=== PATIENT | female | born 1945 ===

== ENCOUNTER 2018-09-23 08:43 | Day surgery (SDC) | payer MEDICAID ==
[2018-09-18 09:49] VITALS: BMI 36.1
[2018-09-23] MEDS ORDERED: Lactated Ringer's 1,000 ML IV ONE (09:15)
--- NOTE | 2018-09-23 13:23 | CP.SDSHP ---
Same Day Surgery H & P - History Proposed Procedure: Right Modified Radical Mastectomy Pre-Op Diagnosis: Invasive Ductal Carcinoma of the Right Breast - Previous Medical/Surgical History Cardiac: Hypertension Endocrine/Metabolic: Thyroid Disease (Hypothyroidism) Comments: PMH: Diabetes, HLD, Hypothyroidism, HTN. SocialHx: hx of tobacco use, quit last year Previous Surgical History: 1. Cholecystectomy 2. Cesarian Section 3. R. Knee Surgery - Allergies Allergies: Allergies No Known Allergies Allergy (Verified 09/23/18 09:22) - Physical Exam General Appearance: well developed, no acute distress Vital Signs: Vital Signs 09/23/18 09/23/18 09:11 09:37 Temperature 97.9 F 97.9 F Pulse Rate 78 78 Respiratory 18 18 Rate Blood Pressure 139/79 139/79 O2 Sat by Pulse 98 98 Oximetry Mental Status: Alert & Oriented x3 Neuro: WNL Heart: WNL Lungs: WNL GI: WNL Social History: Smoking (former tobacco use) - {Optional Preform as Required} Breast: Other Abdomen: WNL - Impression Impression: 73F w/ Invasive Ductal Ca of the Right breast. Plan for Right Breast modified radical mastectomy Pt. Evaluated Today:Candidate for Anesthesia & Procedure: Yes - Date & Time Date: 09/23/18 Time: 13:24 Short Stay Discharge - Short Stay Discharge Admitting Diagnosis/Reason for Visit: C50.511 Disposition: HOME/ ROUTINE Referrals: Cherise Barrera MD [Primary Care Provider] - Alicia Al MD [Family Provider] - Instructions: Mastectomy (DC), Breast Surgery Exercises Additional Instructions (Diet, Activity): keep dressing on for 2 days. After can remove and cleared for shower. Can keep arm elevated. Follow up in clinic in 1-2 weeks If fever > 100.4 take over the counter tylenol. if fever persists go to the ER Do no soak in bath or go swimming in ocean. hacer phill con cirujano 1-2 semanas mantener bendaje por 2 massey, mantener brazo elevado Progress Note/Discharge Note with Instructions: Dictation #: [id number] Patient seen and examined at bedside this AM. Closed suction drain that is in the breast bed put out 140cc of serosang fluid. OnQ Catheter in place, suspected some of the drainage in the closed suction bulb is local anesthetic. Patient dressing C/D/i, no strikethrough. patient moving RUE, sensation intact. able to shrug shoulders
[2018-09-23] MEDS ORDERED: Bupivacaine 0.25% 300 ML in Sodium Chloride 0.9% 300 ML IS ONE (15:07)
[2018-09-23] MEDS ORDERED: Bupivacaine 0.5% 50 ML IJ ONE (16:55)
[2018-09-23] MEDS ORDERED: Oxycodone/Acetaminophen 5/325 mg Tab PO PRN (17:10)
[2018-09-23] MEDS ORDERED: HYDROmorphone 1 mg/ml ISec IVP PRN (17:13)
[2018-09-23] MEDS ORDERED: Dexamethasone 4 mg/1 ml IVP PRN (17:23)
[2018-09-23] MEDS ORDERED: HYDROmorphone 0.5 mg/0.5 ml ISec IVP PRN (17:23)
[2018-09-23] MEDS ORDERED: Patient's Own Med (Fluticasone/Salmeterol [Fluticasone-Salmeterol 113-14] 1 EACH) IH PRN (17:25)
--- NOTE | 2018-09-23 17:25 | PCM.SURG1 ---
Surgeon's Initial Post Op Note - Surgeon's Notes Surgeon: Dr. Barrera R D Internship: Dr. Rod, Dr. Angeles Type of Anesthesia: General Endo Pre-Operative Diagnosis: right breast cancer Operative Findings: good hemostatis Post-Operative Diagnosis: same Operation Performed: right modified radical mastectomy, placement on OnQ pain pump Specimen/Specimens Removed: right breast, stitch lateral. right axilla lymph node tissue Estimated Blood Loss: EBL {In ML}: 100 Blood Products Given: N/A Drains Used: Maik Post-Op Condition: Good Date of Surgery/Procedure: 09/23/18 Time of Surgery/Procedure: 17:25
[2018-09-23] MEDS: Lactated Ringer's 1,000 ML IV SCH (20:17)
[2018-09-24] MEDS: ceFAZolin 2 GM in Sodium Chloride 0.9% 100 ML IVPB SCH ×2 (00:43→11:24)
[2018-09-24] MEDS: Insulin Lispro (humaLOG) 100 Units/ml Inj SC SCH ×3 (00:49→17:57)
[2018-09-24] MEDS: Lactated Ringer's 1,000 ML IV SCH (05:56)
[2018-09-24] MEDS: Levothyroxine 75 MCG TAB PO SCH (06:07)
[2018-09-24 07:13] LABS: BASO % 0.3 % (0.0-2.0); EOS # 0.1 K/uL (0.0-0.7); HEMOGLOBIN 11.3 g/dL (12.0-16.0); LYMPH # 1.8 K/uL (1.0-4.3); LYMPH % 16.6 % (20.0-40.0); MEAN CELL VOLUME 84.4 fl (81.0-99.0); MEAN CORPUSCULAR HEMOGLOBIN 28.2 pg (27.0-31.0); MEAN CORPUSCULAR HGB CONC 33.4 g/dL (33.0-37.0); MONO # 0.8 K/uL (0.0-0.8); MONO % 7.1 % (0.0-10.0); NEUT # 8.1 K/uL (1.8-7.0); RBC 4.02 Mil/uL (3.80-5.20); RED CELL DISTRIBUTION WIDTH 14.4 % (11.5-14.5); WHITE BLOOD COUNT 10.8 K/uL (4.8-10.8)
[2018-09-24 07:30] LABS: BLOOD UREA NITROGEN 14 mg/dl (7-17); CALCIUM 8.5 mg/dL (8.4-10.2); GFR NON-AFRICAN AMERICAN > 60
[2018-09-24] MEDS: Cholecalciferol 1,000 INTLU TAB PO SCH (08:54)
[2018-09-24] MEDS ORDERED: METFORMIN HCL 500 MG PO SCH (09:00)
[2018-09-24] MEDS: Enoxaparin 40 mg Syringe SC SCH (09:01)
--- NOTE | 2018-09-24 10:27 | CP.PCM.PN ---
Subjective - Date & Time of Evaluation Date of Evaluation: 09/24/18 Time of Evaluation: 06:40 - Subjective Subjective: Surgery progress note for Dr. Barrera Pt seen and examined at bedside this AM. Tolerating diet, reports mild pain her right arm, no fevers, chills, or drainage from the surgical site. Objective - Vital Signs/Intake and Output Vital Signs (last 24 hours): Temp Pulse Resp BP Pulse Ox 101.3 F H 91 H 20 98/61 L 93 L 09/24/18 08:13 09/24/18 08:13 09/24/18 08:13 09/24/18 08:13 09/24/18 08:13 Intake and Output: 09/24/18 09/24/18 06:59 18:59 Intake Total 400 Output Total 890 Balance -490 - Medications Medications: Current Medications Acetaminophen (Tylenol 325mg Tab) 650 mg PO Q4 PRN PRN Reason: Fever >100.4 F Last Admin: 09/24/18 08:57 Dose: 650 mg Acetaminophen (Tylenol 325mg Tab) 975 mg PO Q8 PRN PRN Reason: Other Atorvastatin Calcium (Lipitor) 20 mg PO DAILY [facility] Last Admin: 09/24/18 08:44 Dose: 20 mg Calcium Carbonate (Oscal) 500 mg PO BID [facility] Last Admin: 09/24/18 08:55 Dose: 500 mg Cholecalciferol (Vitamin D) 1,000 intlu PO DAILY [facility] Last Admin: 09/24/18 08:54 Dose: 1,000 intlu Enoxaparin Sodium (Lovenox) 40 mg SC DAILY [facility]; Protocol Last Admin: 09/24/18 09:01 Dose: 40 mg Fenofibrate (Tricor) 145 mg PO DAILY [facility] Last Admin: 09/24/18 08:54 Dose: 145 mg Home Med (Fluticasone/Salmeterol [Fluticasone-Salmeterol 113-14]) 1 each IH PRN PRN PRN Reason: Shortness of Breath Hydromorphone HCl (Dilaudid) 1 mg IVP Q4 PRN PRN Reason: Pain, moderate (4-7) Insulin Human Lispro (Humalog) 0 units SC Q8H [facility]; Protocol Last Admin: 09/24/18 00:49 Dose: Not Given Levothyroxine Sodium (Synthroid) 75 mcg PO DAILY@0630 [facility] Last Admin: 09/24/18 06:07 Dose: 75 mcg Metformin HCl (Glucophage) 250 mg PO BID [facility] Last Admin: 09/24/18 08:44 Dose: 250 mg Oxycodone/Acetaminophen (Percocet 5/325 Mg Tab) 1 tab PO Q6 PRN PRN Reason: Pain, moderate (4-7) Stop: 09/26/18 17:11 - Labs Labs: 09/24/18 06:30 09/24/18 06:30 - Constitutional Appears: Well, Non-toxic, No Acute Distress - Head Exam Head Exam: ATRAUMATIC, NORMOCEPHALIC - Eye Exam Eye Exam: Normal appearance. absent: Conjunctival injection, Scleral icterus - ENT Exam ENT Exam: Mucous Membranes Moist, Normal Oropharynx - Respiratory Exam Respiratory Exam: NORMAL BREATHING PATTERN. absent: Accessory Muscle Use, Respiratory Distress - Cardiovascular Exam Cardiovascular Exam: RRR Additional comments: right breast incisional dressing clean, dry, intact, pily drain with serosanguinous fluid output - GI/Abdominal Exam GI & Abdominal Exam: Soft. absent: Distended, Tenderness - Extremities Exam Extremities Exam: absent: Calf Tenderness, Pedal Edema, Tenderness - Neurological Exam Neurological Exam: Alert, Awake, Oriented x3 - Psychiatric Exam Psychiatric exam: Normal Affect, Normal Mood - Skin Skin Exam: Dry, Normal Color, Warm Assessment and Plan - Assessment and Plan (Free Text) Assessment: 73F
--- NOTE | 2018-09-24 11:53 | CP.PCM.DIS ---
Provider - Provider Date of Admission: 09/23/2018 Attending physician: Cherise Barrera MD Primary care physician: Cherise Barrera MD Time Spent in preparation of Discharge (in minutes): 35 Diagnosis - Discharge Diagnosis (1) Status post partial mastectomy of right breast Status: Acute Priority: High (2) Invasive ductal carcinoma of right breast Status: Acute Priority: High (3) HTN (hypertension) Status: Chronic Priority: Medium (4) HLD (hyperlipidemia) Status: Chronic Priority: Medium (5) Diabetes mellitus Status: Chronic Priority: Medium (6) Hypothyroid Status: Chronic Priority: Medium Hospital Course - Lab Results Lab Results: Most Recent Lab Values WBC 10.8 K/uL (4.8-10.8) 09/24/18 06:30 RBC 4.02 Mil/uL (3.80-5.20) 09/24/18 06:30 Hgb 11.3 g/dL (12.0-16.0) L D 09/24/18 06:30 Hct 33.9 % (34.0-47.0) L 09/24/18 06:30 MCV 84.4 fl (81.0-99.0) 09/24/18 06:30 MCH 28.2 pg (27.0-31.0) 09/24/18 06:30 MCHC 33.4 g/dL (33.0-37.0) 09/24/18 06:30 RDW 14.4 % (11.5-14.5) 09/24/18 06:30 Plt Count 163 K/uL (130-400) 09/24/18 06:30 MPV 9.0 fl (7.2-11.7) 09/24/18 06:30 Neut % (Auto) 75.0 % (50.0-75.0) 09/24/18 06:30 Lymph % (Auto) 16.6 % (20.0-40.0) L 09/24/18 06:30 [place] % (Auto) 7.1 % (0.0-10.0) 09/24/18 06:30 Eos % (Auto) 1.0 % (0.0-4.0) 09/24/18 06:30 Baso % (Auto) 0.3 % (0.0-2.0) 09/24/18 06:30 Neut # (Auto) 8.1 K/uL (1.8-7.0) H 09/24/18 06:30 Lymph # (Auto) 1.8 K/uL (1.0-4.3) 09/24/18 06:30 [place] # (Auto) 0.8 K/uL (0.0-0.8) 09/24/18 06:30 Eos # (Auto) 0.1 K/uL (0.0-0.7) 09/24/18 06:30 Baso # (Auto) 0.0 K/uL (0.0-0.2) 09/24/18 06:30 Sodium 135 mmol/l (132-148) 09/24/18 06:30 Potassium 3.6 MMOL/L (3.6-5.0) 09/24/18 06:30 Chloride 99 mmol/L (98-107) 09/24/18 06:30 Carbon Dioxide 27 mmol/L (22-30) 09/24/18 06:30 Anion Gap 13 (10-20) 09/24/18 06:30 BUN 14 mg/dl (7-17) 09/24/18 06:30 Creatinine 0.9 mg/dl (0.7-1.2) 09/24/18 06:30 Est GFR ( Amer) > 60 09/24/18 06:30 Est GFR (Non-Af Amer) > 60 09/24/18 06:30 POC Glucose (mg/dL) 144 mg/dL (65-110) H 09/24/18 10:51 Random Glucose 116 mg/dL (65-105) H 09/24/18 06:30 Calcium 8.5 mg/dL (8.4-10.2) 09/24/18 06:30 Blood Type B NEGATIVE 09/23/18 10:31 Blood Type Confirm B NEGATIVE 09/23/18 11:58 Antibody Screen Negative 09/23/18 10:31 BBK History Checked No verified bt 09/23/18 10:31 - Hospital Course Hospital Course: Pt is a 73F who had a diagnosis of invasive ductal carcinoma of the right breast via ultrasound biopsy who presented through same day surgery for modified radical mastectomy of the right breast. Patient tolerated the procedure well, and was kept overnight for wound monitoring and pain management. Patient recovered well and on POD#1 was tolerating pain on PO pain medication only, eating regular diet, and ambulating. Discharge Exam - Head Exam Head Exam: ATRAUMATIC, NORMOCEPHALIC Discharge Plan - Follow Up Plan Condition: GOOD Disposition: HOME/ ROUTINE Instructions: Mastectomy (DC), Breast Surgery Exercises Additional Instructions: keep dressing on for 2 days. After can remove and cleared for shower. Can keep arm elevated. Follow up in clinic in 1-2 weeks If fever > 100.4 take over the counter tylenol. if fever persists go to the ER Do no soak in bath or go swimming in ocean. hacer phill con cirujano 1-2 semanas mantener bendpaolo por 2 massey, mantener brazo elevado Referrals: Cherise Barrera MD [Primary Care Provider] - Alicia Al MD [Family Provider] -
--- NOTE | 2018-09-24 15:54 | OP ---
PROCEDURE DATE: 09/23/2018 SURGEON: Cherise Barrera MD. ASSISTANTS: 1. Neal Rod DO, PGY-4 2. Eduardo Angeles, PGY-2 ANESTHESIA: General. PREOPERATIVE DIAGNOSIS: Invasive ductal carcinoma of the right breast. POSTOPERATIVE DIAGNOSIS: Invasive ductal carcinoma of the right breast. PROCEDURES: 1. Modified radical mastectomy. 2. Axillary lymph node dissection at level 1 and 2. ESTIMATED BLOOD LOSS: 50 mL. SPECIMEN: 1. Breast. 2. Axillary lymph nodes. INDICATIONS FOR SURGERY: This is a 73-year-old female that on workup with cytology and biopsy was confirmed to have invasive ductal carcinoma of the right breast. She was demonstrated after detailed description and workup and detailed conversation with the patient. The patient agreed for a modified radical mastectomy. Discussions of alternatives were also discussed; however, the patient and family members decided the approach for a modified radical mastectomy was appropriate. DESCRIPTION OF PROCEDURE: The patient was brought into the operating suite and placed in supine position. The site of the surgery was confirmed of the right breast. The otto was noted in the preoperative. General anesthesia was then induced. Endotracheal tube was placed and confirmation with end tidal CO2. A time out was taken, completing, verifying correct patient, procedure site, and positioning. The breast, chest wall, and the axilla, upper arm and neck were prepped and draped in the usual sterile fashion using chlorhexidine. Skin incision was made above and below the nipple areolar complex and the oblique dissection across the breast was made. The flaps were raised in the avascular plane between the subcutaneous tissue and the breast tissue from the clavicle superiorly and the sternum medially, the anterior rectus sheath inferiorly and the anterior border of the latissimus dorsi muscle laterally. Hemostasis was achieved in the flaps using a combination of electrocautery and clamped and tied using 3-0 Vicryl. Next the breast tissue and the underlying pectoralis fascia was then excised from the pectoralis major muscle progressing from medial to lateral. The lateral border of the pectoralis major muscle, the breast tissue was retracted laterally and the dissection progressed under to the muscle. The clavipectoral fascia was then incised along the edge of the pectoralis major muscle and the pectoralis minor and major were freed from the surrounding tissues. The dissection progressed under the pectoralis major and then under the pectoralis minor fascia. The pectoralis muscle was continued to retract medially with the Bunn retractor. The medial pectoralis neurovascular bundle was identified and preserved. The levels of the 1 and the 2 aimee tissue in the pectoralis minor muscle was then dissected and removed using a combination of hemoclips ties and electrocautery. The first branch of the axillary vein was appropriately visualized and was noted to ensure that we stayed away from the axillary vein. The long thoracic nerve was then identified along the lateral edge of the latissimus dorsi along the chest wall, which was ensured to be preserved. The remaining aimee tissue between was then appropriately removed and once again using a combination of hemoclips and electrocautery was used. Any bleeding that was found was either clamped or tied with 3-0 Vicryl or using electrocautery. The remaining nodes were carefully removed and ensured by protecting the nerves. The specimens included #1 breast and the aimee tissues #2. A suture was placed on to the lateral portion of the breast and sent off the table for pathology. Afterwards the entire chest, bed and the axillary bed were then inspected. At this time, no immediate bleeding was noted at this time. An ON-Q local anesthetic tunneled catheter was placed and was flushed with 5 mL of 0.5 bupivacaine. A closed suction drain was placed on the chest wall bed and was secured in place with the 3-0 Silk suture. A separate stab incision was made laterally. The wound was then closed and approximated with sixto of the subcuticular layer. Sterile dressing was applied and fluff was placed using a support bra was then made and the patient was then awakened and extubated and taken to the postanesthesia care unit in stable condition . All counts were correct at the end of the case. Dr. Barrera was present and participated in all aspects of the case. Eduardo Angeles DO Cherise Barrera MD [facility]ITALOmkar
--- NOTE | 2018-09-24 22:04 | CP.PCM.PN ---
Subjective - Date & Time of Evaluation Date of Evaluation: 09/24/18 Time of Evaluation: 11:35 - Subjective Subjective: Surgery progress note- Dr. Barrera Pt seen and examined at bedside. Overnight patient had a temperature of 100.3, resolved after tylenol. Currently tolerating diet. reports mild pain her right arm. Maik Drain 140cc serosang fluid since surgery. Dressing C/D/I no strikethrough Objective - Vital Signs/Intake and Output Vital Signs (last 24 hours): Temp Pulse Resp BP Pulse Ox 98.3 F 71 18 103/59 L 100 09/24/18 17:00 09/24/18 17:00 09/24/18 17:00 09/24/18 17:00 09/24/18 17:00 Intake and Output: 09/24/18 09/25/18 18:59 06:59 Output Total 150 Balance -150 - Medications Medications: Current Medications Acetaminophen (Tylenol 325mg Tab) 650 mg PO Q4 PRN PRN Reason: Fever >100.4 F Last Admin: 09/24/18 08:57 Dose: 650 mg Acetaminophen (Tylenol 325mg Tab) 975 mg PO Q8 PRN PRN Reason: Other Atorvastatin Calcium (Lipitor) 20 mg PO DAILY [facility] Last Admin: 09/24/18 08:44 Dose: 20 mg Calcium Carbonate (Oscal) 500 mg PO BID [facility] Last Admin: 09/24/18 17:03 Dose: 500 mg Cholecalciferol (Vitamin D) 1,000 intlu PO DAILY [facility] Last Admin: 09/24/18 08:54 Dose: 1,000 intlu Enoxaparin Sodium (Lovenox) 40 mg SC DAILY [facility]; Protocol Last Admin: 09/24/18 09:01 Dose: 40 mg Fenofibrate (Tricor) 145 mg PO DAILY [facility] Last Admin: 09/24/18 08:54 Dose: 145 mg Insulin Human Lispro (Humalog) 0 units SC Q8H [facility]; Protocol Last Admin: 09/24/18 17:57 Dose: Not Given Levothyroxine Sodium (Synthroid) 75 mcg PO DAILY@0630 [facility] Last Admin: 09/24/18 06:07 Dose: 75 mcg Metformin HCl (Glucophage) 250 mg PO BID [facility] Last Admin: 09/24/18 17:03 Dose: 250 mg Oxycodone/Acetaminophen (Percocet 5/325 Mg Tab) 2 tab PO Q6 PRN PRN Reason: Pain, severe (8-10) Stop: 09/27/18 10:51 - Labs Labs: 09/24/18 06:30 09/24/18 06:30 - Constitutional Appears: Non-toxic, No Acute Distress - Head Exam Head Exam: ATRAUMATIC - Eye Exam Eye Exam: EOMI. absent: Scleral icterus - Respiratory Exam Respiratory Exam: NORMAL BREATHING PATTERN. absent: Accessory Muscle Use, Respiratory Distress - GI/Abdominal Exam GI & Abdominal Exam: Soft. absent: Distended, Firm, Guarding, Tenderness - Back Exam Additional comments: BREAST: Dressing C/D/I no strikethrough OnQ bal in place x2. Maik drain 140cc serosang since surgery. - Neurological Exam Neurological Exam: Alert, Awake, Oriented x3 - Psychiatric Exam Psychiatric exam: Normal Affect - Skin Skin Exam: Intact, Warm Assessment and Plan - Assessment and Plan (Free Text) Assessment: 73F s/p modified radical mastectomy POD#1 Plan: - will continue to monitor and observe for one more night due to low grade fever - Monitor drain output - pain control PRN - encourage OOB and ambulation - Incentive spirometer use - Plan to remove Maik drain and OnQ pump tomorrow - discussed w/ Dr. Barrera surgical attending PGY2
[2018-09-25] MEDS: Oxycodone/Acetaminophen 5/325 mg Tab PO PRN ×2 (00:39→10:43)
[2018-09-25] MEDS: Insulin Lispro (humaLOG) 100 Units/ml Inj SC SCH ×3 (00:44→18:18)
[2018-09-25] MEDS: Levothyroxine 75 MCG TAB PO SCH (06:40)
[2018-09-25 07:40] LABS: BASO % 0.4 % (0.0-2.0); EOS # 0.4 K/uL (0.0-0.7); EOS % 3.6 % (0.0-4.0); HEMOGLOBIN 11.3 g/dL (12.0-16.0); LYMPH # 2.1 K/uL (1.0-4.3); LYMPH % 20.7 % (20.0-40.0); MEAN CELL VOLUME 85.6 fl (81.0-99.0); MEAN CORPUSCULAR HGB CONC 32.8 g/dL (33.0-37.0); MEAN PLATELET VOLUME 9.3 fl (7.2-11.7); MONO # 0.7 K/uL (0.0-0.8); MONO % 7.4 % (0.0-10.0); NEUT # 6.8 K/uL (1.8-7.0); NEUT % 67.9 % (50.0-75.0); RBC 4.04 Mil/uL (3.80-5.20); RED CELL DISTRIBUTION WIDTH 14.5 % (11.5-14.5); WHITE BLOOD COUNT 10.1 K/uL (4.8-10.8)
[2018-09-25 07:56] LABS: BLOOD UREA NITROGEN 17 mg/dl (7-17); CALCIUM 9.1 mg/dL (8.4-10.2); GFR NON-AFRICAN AMERICAN > 60
--- NOTE | 2018-09-25 09:00 | CP.PCM.DIS ---
Provider - Provider Date of Admission: 09/23/18 Attending physician: Cherise Barrera MD Primary care physician: Cherise Barrera MD Time Spent in preparation of Discharge (in minutes): 35 Diagnosis - Discharge Diagnosis (1) Invasive ductal carcinoma of right breast Status: Acute Priority: High (2) Status post partial mastectomy of right breast Status: Acute Priority: High (3) Diabetes mellitus Status: Chronic Priority: Medium (4) HLD (hyperlipidemia) Status: Chronic Priority: Medium (5) HTN (hypertension) Status: Chronic Priority: Medium Hospital Course - Lab Results Lab Results: Most Recent Lab Values WBC 10.1 K/uL (4.8-10.8) 09/25/18 06:30 RBC 4.04 Mil/uL (3.80-5.20) 09/25/18 06:30 Hgb 11.3 g/dL (12.0-16.0) L 09/25/18 06:30 Hct 34.6 % (34.0-47.0) 09/25/18 06:30 MCV 85.6 fl (81.0-99.0) 09/25/18 06:30 MCH 28.0 pg (27.0-31.0) 09/25/18 06:30 MCHC 32.8 g/dL (33.0-37.0) L 09/25/18 06:30 RDW 14.5 % (11.5-14.5) 09/25/18 06:30 Plt Count 159 K/uL (130-400) 09/25/18 06:30 MPV 9.3 fl (7.2-11.7) 09/25/18 06:30 Neut % (Auto) 67.9 % (50.0-75.0) 09/25/18 06:30 Lymph % (Auto) 20.7 % (20.0-40.0) 09/25/18 06:30 [place] % (Auto) 7.4 % (0.0-10.0) 09/25/18 06:30 Eos % (Auto) 3.6 % (0.0-4.0) 09/25/18 06:30 Baso % (Auto) 0.4 % (0.0-2.0) 09/25/18 06:30 Neut # (Auto) 6.8 K/uL (1.8-7.0) 09/25/18 06:30 Lymph # (Auto) 2.1 K/uL (1.0-4.3) 09/25/18 06:30 [place] # (Auto) 0.7 K/uL (0.0-0.8) 09/25/18 06:30 Eos # (Auto) 0.4 K/uL (0.0-0.7) 09/25/18 06:30 Baso # (Auto) 0.0 K/uL (0.0-0.2) 09/25/18 06:30 Sodium 139 mmol/l (132-148) 09/25/18 06:30 Potassium 4.0 MMOL/L (3.6-5.0) 09/25/18 06:30 Chloride 102 mmol/L (98-107) 09/25/18 06:30 Carbon Dioxide 28 mmol/L (22-30) 09/25/18 06:30 Anion Gap 13 (10-20) 09/25/18 06:30 BUN 17 mg/dl (7-17) 09/25/18 06:30 Creatinine 0.9 mg/dl (0.7-1.2) 09/25/18 06:30 Est GFR ( Amer) > 60 09/25/18 06:30 Est GFR (Non-Af Amer) > 60 09/25/18 06:30 POC Glucose (mg/dL) 123 mg/dL (65-110) H 09/25/18 00:37 Random Glucose 123 mg/dL (65-105) H 09/25/18 06:30 Calcium 9.1 mg/dL (8.4-10.2) 09/25/18 06:30 Blood Type B NEGATIVE 09/23/18 10:31 Blood Type Confirm B NEGATIVE 09/23/18 11:58 Antibody Screen Negative 09/23/18 10:31 BBK History Checked No verified bt 09/23/18 10:31 - Hospital Course Hospital Course: This patient was admitted on 09/23/18 for invasive ductal carcinoma. She had a right modified radical mastectomy she had an uneventful recover. Pain is well controlled. She is clear for discharge today. She will followup in office on [facility] fr[facility] at 3pm. Discharge Exam - Head Exam Head Exam: ATRAUMATIC - Eye Exam Eye Exam: EOMI, Normal appearance - Respiratory Exam Respiratory Exam: NORMAL BREATHING PATTERN - Cardiovascular Exam Cardiovascular Exam: REGULAR RHYTHM - GI/Abdominal Exam GI & Abdominal Exam: Soft. absent: Guarding, Hernia, Rigid, Tenderness - Neurological Exam Neurological exam: Alert, Oriented x3 - Psychiatric Exam Psychiatric exam: Normal Affect, Normal Mood - Skin Skin Exam: Dry, Intact Discharge Plan - Follow Up Plan Condition: GOOD Disposition: HOME/ ROUTINE Patient education suggested?: Yes Instructions: Mastectomy (DC), Breast Surgery Exercises Additional Instructions: keep dressing on for 2 days. After can remove and cleared for shower. Can keep arm elevated. Follow up in clinic in 1-2 weeks If fever > 100.4 take over the counter tylenol. if fever persists go to the ER Do no soak in bath or go swimming in ocean. hacer phill con cirujano 1-2 semanas mantener bendaje por 2 massey, mantener brazo elevado Referrals: Cherise Barrera MD [Primary Care Provider] - Alicia Al MD [Family Provider] -
[2018-09-25] MEDS: Cholecalciferol 1,000 INTLU TAB PO SCH (09:58)
[2018-09-25] MEDS: Enoxaparin 40 mg Syringe SC SCH (09:58)
[2018-09-25] MEDS ORDERED: Oxycodone/Acetaminophen 5/325 mg Tab PO PRN (15:23)
[2018-09-25] MEDS ORDERED: Simethicone 80 mg Chewtab PO PRN (20:35)
[2018-09-26] MEDS: Insulin Lispro (humaLOG) 100 Units/ml Inj SC SCH ×2 (01:00→10:36)
[2018-09-26] MEDS: Levothyroxine 75 MCG TAB PO SCH (06:14)
--- NOTE | 2018-09-26 06:58 | CP.PCM.PCO ---
Physician Communication Note - Physician Communication Note Physician Communication Note: PT was dicharged yesterday however due to nausea she stayed ok to go now
[2018-09-26 08:13] VITALS: BP 105/66; PULSE 70; RESP 20; TEMP 98.1; O2SAT 95
[2018-09-26] MEDS: Enoxaparin 40 mg Syringe SC SCH (10:30)
[2018-09-26] MEDS: Cholecalciferol 1,000 INTLU TAB PO SCH (10:34)
== END 2018-09-26 13:22 | disposition home or self-care (01) ==
LOC: H.OPSURG 08:43 → H.MEDSURG1 18:43 → H.OPSURG 09-26 13:22
PROVIDERS: ATTEND Specialist
DX: C50.511 Malignant neoplasm of lower-outer quadrant of right female breast (principal); E03.9 Hypothyroidism, unspecified; E11.9 Type 2 diabetes mellitus without complications; E78.5 Hyperlipidemia, unspecified; I10 Essential (primary) hypertension; Z79.899 Other long term (current) drug therapy; Z87.891 Personal history of nicotine dependence; Z90.11 Acquired absence of right breast and nipple
CPT/HCPCS: 19307; 36415; 80048; 82948; 85025; 86850; 86900; 88307; J0690; J1650; J2405; J7120